=== PATIENT | male | born 1955 | race Caucasian/White ===

== ENCOUNTER 2016-09-13 20:48 | Emergency (ER) | payer OTHER ==
[~2016-09-13] VITALS: Ht 180.3 cm; Wt 122.0 kg
[2016-09-13 20:51] VITALS: BP 159/105
[2016-09-13] MEDS ORDERED: ONDANSETRON 2MG/ML, 2ML IVPush ONE (21:30)
[2016-09-13] MEDS ORDERED: SODIUM CHLORIDE FLUSH 10ML SYR IVF ONE (21:30)
[2016-09-13] MEDS ORDERED: SODIUM CHLORIDE 0.9% 1,000ML IVBOLUS ONE (21:30)
[2016-09-13] MEDS ORDERED: CAPE500T24 PO (21:34)
[2016-09-13] MEDS ORDERED: HYDR10TA4 PO (21:35)
[2016-09-13] MEDS ORDERED: TRAZ50TA18 PO (21:35)
[2016-09-13] MEDS ORDERED: LORA1TAB PO (21:35)
[2016-09-13] MEDS ORDERED: ONDANSETRON 2MG/ML, 2ML ONE (21:40)
[2016-09-13 21:52] LABS: ASPARTATE AMINO TRANSFERASE 48 U/L (15-37); BLOOD UREA NITROGEN 6 mg/dL (7-18)
== END 2016-09-13 22:34 | disposition home or self-care (01) ==
LOC: ED 22:00
DX: T50.905A Adverse effect of unspecified drugs, medicaments and biological substances, initial encounter (principal); R53.1 Weakness; R11.2 Nausea with vomiting, unspecified; I10 Essential (primary) hypertension; Z87.891 Personal history of nicotine dependence; Z85.038 Personal history of other malignant neoplasm of large intestine; Y92.9 Unspecified place or not applicable
CPT/HCPCS: 36415; 80053; 81003; 85025; 93005; 96361; 96374; 99285; J2405; J7030

== ENCOUNTER 2018-08-26 11:13 | Emergency (ER) | payer OTHER ==
[~2018-08-26] VITALS: Ht 177.8 cm; Wt 132.1 kg
[~2018-08-26 11:13] MED LIST: CAPE500T24 PO; HYDR10TA4 PO; LORA1TAB PO; TRAZ50TA66 PO
--- NOTE | 2018-08-26 11:36 | NUR ---
PT HAS CO OF CHEST PAIN RELATED TO ANXIETY. PT STATESH HE HAS BEEN DRINKING 1 PINT OF DAY W A BEER. CURRENTLY SMOKES. PT STATES HE HAS NEUROPATHY OF THE FEET
[2018-08-26] MEDS ORDERED: LORazepam 2 MG/ML, 1ML ONE (11:54)
[2018-08-26] MEDS ORDERED: SODIUM CHLORIDE FLUSH 10ML SYR IVF ONE (12:00)
[2018-08-26] MEDS ORDERED: LORazepam 2 MG/ML, 1ML IVPush ONE (12:00)
[2018-08-26 12:04] LABS: BASOPHILS # (AUTO) 0.02 x10^3/uL (0-0.1); BASOPHILS % (AUTO) 0 % (0-1); EOSINOPHILS # (AUTO) 0.02 x10^3/uL (0-0.4); EOSINOPHILS % (AUTO) 0 % (1-7); LYMPHOCYTES # (AUTO) 2.09 x10^3/uL (1-3.4); LYMPHOCYTES % (AUTO) 24 % (22-44); MD NO; MEAN CORPUSCULAR HEMOGLOBIN 31.9 pg (27.5-34.5); MEAN CORPUSCULAR HGB CONC 33.7 g/dL (33.2-36.2); MEAN CORPUSCULAR VOLUME 94.8 fL (81-97); MEAN PLATELET VOLUME 7.9 fL (7.4-10.4); MONOCYTES # (AUTO) 0.69 x10^3/uL (0.2-0.8); MONOCYTES % (AUTO) 8 % (2-9); NEUTROPHILS # (AUTO) 5.97 x10^3/uL (1.8-6.8); NEUTROPHILS % (AUTO) 68 % (42-75); PLATELET COUNT 244 x10^3/uL (130-400); RED CELL DISTRIBUTION WIDTH 16.8 % (9.4-14.8)
[2018-08-26 12:08] LABS: ALANINE AMINOTRANSFERASE 97 U/L (12-78); ALBUMIN 3.7 g/dL (3.4-5.0); ANION GAP 10 mmol/L (5-15); CALCIUM 9.4 mg/dL (8.5-10.1); CHLORIDE 106 mmol/L (98-107); CREATININE 0.96 mg/dL (0.7-1.3)
[2018-08-26 12:13] LABS: ALKALINE PHOSPHATASE 77 U/L (45-117); BILIRUBIN,TOTAL 0.3 mg/dL (0.2-1.0); TOTAL PROTEIN 8.3 g/dL (6.4-8.2); TROPONIN I < 0.015 ng/mL (0.000-0.045)
--- NOTE | 2018-08-26 12:39 | NUR ---
PT STATES DECREASE ANXIETY WITH MEDICATION, DENIES ANY CHEST PAIN, DENIES ANY NEEDS AT THIS TIME
[2018-08-26 12:40] VITALS: BP 144/79
--- NOTE | 2018-08-26 13:04 | NUR ---
Patient/Caregiver given discharge instructions and they have confirmed that they understand the instructions. Patient ambulatory with steady gait.
== END 2018-08-26 13:06 | disposition home or self-care (01) ==
LOC: ED 12:27
DX: F41.1 Generalized anxiety disorder (principal); R07.89 Other chest pain; F10.239 Alcohol dependence with withdrawal, unspecified
CPT/HCPCS: 36415; 71045; 80053; 83735; 84484; 85025; 93005; 96374; 99284; J2060